=== PATIENT | male | born 1990 | race Caucasian/White ===

== ENCOUNTER 2016-10-13 21:12 | Emergency (ER) | payer OTHER ==
[~2016-10-13] VITALS: Ht 170.2 cm; Wt 57.6 kg
[2016-10-13 21:33] VITALS: BP 134/80
--- NOTE | 2016-10-13 22:47 | NUR ---
PT TAKEN TO BED 8
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
[2016-10-13] MEDS ORDERED: ACETAMINOPHEN/CODEINE 300/30MG 1 TAB PO ONE (22:50)
--- NOTE | 2016-10-13 22:50 | NUR ---
Dr. Giron evaluating patient at bedside.
[2016-10-13 23:10] VITALS: BP 127/64
--- NOTE | 2016-10-13 23:10 | NUR ---
Patient discharged with v/s stable. Written and verbal after care instructions given and explained. Patient alert, oriented and verbalized understanding of instructions. Ambulatory with steady gait. All questions addressed prior to discharge. ID band removed. Patient advised to follow up with PMD. Rx of NAPROSYN 500MG given. Patient educated on indication of medication including possible reaction and side effects. Opportunity to ask questions provided and answered.
== END 2016-10-13 23:10 | disposition home or self-care (01) ==
LOC: MED 21:12
DX: S90.32XA Contusion of left foot, initial encounter (principal); X58.XXXA Exposure to other specified factors, initial encounter; Y93.89 Activity, other specified; Y92.89 Other specified places as the place of occurrence of the external cause; Y99.8 Other external cause status
CPT/HCPCS: 73630; 99284

== ENCOUNTER 2018-02-27 14:43 | Emergency (ER) | payer SELFPAY ==
[~2018-02-27] VITALS: Ht 175.3 cm; Wt 56.8 kg
[2018-02-27 14:51] VITALS: BP 139/81
--- NOTE | 2018-02-27 14:55 | NUR ---
PT AMBULATES TO BED 6
--- NOTE | 2018-02-27 15:10 | NUR ---
27 YO M BIB SELF W/ C/O RED RASH TO THE BL ARMS AND INNER THIGHS X 1 MONTH. DENIES TRAVELING [place]IDE [place], DENIES ANYONE ELSE AT HOME HAVING THE RASH. PT REPORTS SEVERE ITCHINESS. PT REPORTS THAT THE ITCHING IS UNBEARABLE. SKIN INTACT, NO DRAINAGE NOR CRUSTING NOTED. STATES LOTIONS AND SHOWERS DO NOT HELP. PAIN 03/04.
[2018-02-27] MEDS ORDERED: hydrOXYzine HCL 25 MG TAB PO ONE (15:30)
[2018-02-27 15:32] VITALS: BP 139/81
--- NOTE | 2018-02-27 15:32 | NUR ---
Patient discharged with v/s stable. Written and verbal after care instructions given and explained. Patient alert, oriented and verbalized understanding of instructions. Ambulatory with steady gait. All questions addressed prior to discharge. ID band removed. Patient advised to follow up with PMD. Rx of ATARAX AND TRIAMCINOLONE given. Patient educated on indication of medication including possible reaction and side effects. Opportunity to ask questions provided and answered.
== END 2018-02-27 15:32 | disposition home or self-care (01) ==
LOC: MED 14:43
DX: L50.9 Urticaria, unspecified (principal); L29.9 Pruritus, unspecified
CPT/HCPCS: 99283

== ENCOUNTER 2018-05-16 14:09 | Emergency (ER) | payer SELFPAY ==
[~2018-05-16] VITALS: Ht 165.1 cm; Wt 61.2 kg
--- NOTE | 2018-05-16 14:28 | NUR ---
PATIENT AMBULATED TO BED 4 AT THIS TIME.
[2018-05-16 14:33] VITALS: BP 126/74
--- NOTE | 2018-05-16 14:36 | NUR ---
28 Y M BIB SON C/O ITCHING ON TESTICLES AND BUMPS SINCE FEBRUARY. SEEN HERE BY DR. MANDUJANO AND GIVEN ATARAX AND CREAM WITH NO RELIEF. DENIES PAIN OR SWELLING, NO DYSURIA. -N/V. BED IS DOWN, LOCKED, BED RAIL X 1, ERMD NOTIFIED. PMH-NONE RX-NONE
--- NOTE | 2018-05-16 14:44 | NUR ---
DR FRANCIS AT BEDSIDE
[2018-05-16 14:45] VITALS: BP 126/74
--- NOTE | 2018-05-16 14:45 | NUR ---
Patient discharged with v/s stable BY DR FRANCIS. Written and verbal after care instructions given and explained. Patient alert, oriented and verbalized understanding of instructions. Ambulatory with steady gait. All questions addressed prior to discharge. ID band removed. Patient advised to follow up with PMD. Rx of DOXYCYCLINE given. Patient educated on indication of medication including possible reaction and side effects. Opportunity to ask questions provided and answered.
== END 2018-05-16 14:45 | disposition home or self-care (01) ==
LOC: MED 14:09
DX: L73.9 Follicular disorder, unspecified (principal)
CPT/HCPCS: 99283